=== PATIENT | female | born 1945 | race Caucasian/White ===

== ENCOUNTER 2024-02-07 06:32 | Day surgery (SDC) | payer MEDICARE ==
[2024-02-07] MEDS: Sodium Chloride 0.9% 10 ML Syringe FLUSH PRN (06:50)
[2024-02-07 06:54] VITALS: PULSE 68
[2024-02-07 08:51] VITALS: BP 147/63
== END 2024-02-07 09:40 | disposition home or self-care (01) ==
LOC: JP.SDS 06:32
PROVIDERS: ATTEND Ophthalmology
DX: H25.12 Age-related nuclear cataract, left eye (principal); I10 Essential (primary) hypertension; E78.5 Hyperlipidemia, unspecified
CPT/HCPCS: 66984; J3490

== ENCOUNTER 2024-09-20 11:31 | Emergency (ER) | payer MEDICARE ==
[2024-09-20 12:38] LABS: BASOPHILS ABSOLUTE AUTO 0.04 K/uL (0.00-0.10); BASOPHILS PERCENT AUTO 0.7 % (0.1-1.3); EOSINOPHILS ABSOLUTE AUTO 0.04 K/uL (0.00-0.40); EOSINOPHILS PERCENT AUTO 0.7 % (0.0-5.4); HEMATOCRIT 38.2 % (34.3-46.0); HEMOGLOBIN 12.9 g/dL (11.2-15.5); IMMATURE GRAN PERCENT AUTO 0.2 % (0.0-0.7); LYMPHOCYTES ABSOLUTE AUTO 1.75 K/uL (0.8-3.3); LYMPHOCYTES PERCENT AUTO 32.1 % (11.4-47.7); MEAN CORPUSCULAR HEMOGLOBIN 30.2 pg (31.6-35.5); MEAN CORPUSCULAR HGB CONC 33.8 g/dL (31.6-35.5); MEAN CORPUSCULAR VOLUME 89.5 fL (81.4-99.0); MONOCYTES ABSOLUTE AUTO 0.54 K/uL (0.20-0.90); MONOCYTES PERCENT AUTO 9.9 % (3.3-12.6); NEUTROPHILS ABSOLUTE AUTO 3.08 K/uL (1.0-7.6); NEUTROPHILS PERCENT AUTO 56.4 % (40.0-78.1); PLATELET COUNT,PLT 188 K/uL (130-375); RED BLOOD CELL COUNT 4.27 M/uL (3.77-5.24); WHITE BLOOD CELL COUNT,WBC 5.5 K/uL (3.2-11.0)
[2024-09-20 12:55] LABS: IMMATURE GRAN ABSOLUTE AUTO 0.01 K/uL (0.00-0.23)
[2024-09-20 13:02] LABS: A/G RATIO 1.1 (1.2-2.2); ALANINE AMINOTRANSFERASE,ALT 21 U/L (12-78); ALBUMIN 3.6 g/dL (3.4-5.0); ALKALINE PHOSPHATASE 65 U/L (46-116); ANION GAP 11.2 mmol/L (5.0-14.0); ASPARTATE AMNIOTRANSFERASE,AST 15 U/L (15-37); BILIRUBIN TOTAL 0.5 mg/dL (0.2-1.0); BLOOD UREA NITROGEN,BUN 24 mg/dL (7-18); CALCIUM 9.5 mg/dL (8.5-10.1); CARBON DIOXIDE,CO2 24 mmol/L (21-32); CHLORIDE,CL 106 mmol/L (100-108); CREATININE 0.9 mg/dL (0.6-1.0); EST CRCL DRUG DOSING (CG) 43.05 mL/min; ESTIMATED GFR 65 mL/min (>60); GLUCOSE RANDOM 97 mg/dL (74-106); POTASSIUM,K 4.1 mmol/L (3.6-5.2); SODIUM,NA 141 mmol/L (140-148)
[2024-09-20 13:10] LABS: C-REACTIVE PROTEIN < 0.50 mg/dL (<0.50)
[2024-09-20 13:24] VITALS: BP 149/95; PULSE 58
[2024-09-20 13:46] LABS: APPEARANCE,URINE CLEAR (CLEAR); BILIRUBIN,URINE NEGATIVE (NEGATIVE); COLOR,URINE YELLOW (YELLOW); GLUCOSE,URINE NEGATIVE (NEGATIVE); KETONES,URINE NEGATIVE (NEGATIVE); LEUKOCYTE ESTERASE,URINE TRACE (NEGATIVE); NITRITE,URINE NEGATIVE (NEGATIVE); OCCULT BLOOD,URINE TRACE-INTACT (NEGATIVE); PROTEIN,URINE NEGATIVE (NEGATIVE); UROBILINOGEN,URINE 0.2 EU/dL (0.2-1.0)
[2024-09-20 13:56] LABS: AMORPHOUS SEDIMENT,URINE MODERATE; BACTERIA,URINE FEW; EPITHELIAL CELLS,URINE FEW; MUCUS,URINE NOT SEEN; RBC,URINE 0-5 (0-5); WBC,URINE 0-5 (0-5)
== END 2024-09-20 14:18 | disposition home or self-care (01) ==
LOC: JP.ED 11:31
DX: R10.30 Lower abdominal pain, unspecified (principal); E78.00 Pure hypercholesterolemia, unspecified; Z88.2 Allergy status to sulfonamides; Z88.8 Allergy status to other drugs, medicaments and biological substances; Z79.899 Other long term (current) drug therapy; Z90.49 Acquired absence of other specified parts of digestive tract; Z90.710 Acquired absence of both cervix and uterus
CPT/HCPCS: 36415; 80053; 81001; 85025; 86140; 99283; 99284

== ENCOUNTER 2025-01-19 06:27 | Day surgery (SDC) | payer MEDICARE ==
[2025-01-19] MEDS ORDERED: Propofol 200 MG/20 ML SDV ONE (07:30)
[2025-01-19] MEDS ORDERED: fentaNYL 250 MCG/5 ML SDV ONE (07:30)
[2025-01-19] MEDS ORDERED: Dexamethasone 4 MG/ML SDV ONE (07:30)
[2025-01-19] MEDS ORDERED: Ondansetron 4 MG/2 ML SDV ONE (07:30)
[2025-01-19] MEDS: Nozin Nasal Sanitizer NASBOTH ONE (07:32)
[2025-01-19] MEDS: Lactated Ringers 1,000 ML IV SCH (08:00)
[2025-01-19] MEDS ORDERED: Lidocaine 1% 2 ML ONE (08:00)
[2025-01-19] MEDS ORDERED: Ketorolac 30 MG/ML SDV ONE (08:33)
[2025-01-19] MEDS: Acetaminophen/HYDROcodone 325-5 MG Tab PO ONE (11:13)
[2025-01-19 12:31] VITALS: BP 123/58; PULSE 60
[2025-01-19] MEDS: Ondansetron 4 MG/2 ML SDV IVPUSH ONE (12:51)
== END 2025-01-19 13:45 | disposition home or self-care (01) ==
LOC: JP.SDS 06:27
PROVIDERS: ATTEND Specialist
DX: S83.242A Other tear of medial meniscus, current injury, left knee, initial encounter (principal); M94.262 Chondromalacia, left knee; E78.5 Hyperlipidemia, unspecified; I10 Essential (primary) hypertension; I25.10 Atherosclerotic heart disease of native coronary artery without angina pectoris; Z88.2 Allergy status to sulfonamides; Z88.8 Allergy status to other drugs, medicaments and biological substances; Z79.899 Other long term (current) drug therapy; X58.XXXA Exposure to other specified factors, initial encounter
CPT/HCPCS: 01400-QZ; A9270-GY; J0665; J0690; J1100; J1885; J2003; J2405; J2704; J3010; J7120